=== PATIENT | male | born 1980 | race Caucasian/White ===

== ENCOUNTER 2022-02-24 15:53 | Emergency (ER) | payer OTHER ==
[2022-02-24 16:47] LABS: EOSINOPHIL 13.3 % (0-5); HCT 44.7 % (42.0-52.0); HGB 14.9 g/dl (13.2-18.0); LYMPHOCYTE 27.8 % (15-48); MCH 27.6 pg (25.0-31.0); MCHC 33.3 g/dL (32.0-36.0); MCV 82.9 fL (78.0-100.0); MONOCYTE 12.7 % (0-12); MPV 9.8 fL (6.0-9.5); NEUTROPHIL 44.6 % (41-80); NRBC 0; PLT 337 K/uL (150-400); RBC 5.39 M/uL (4.70-6.00); RDW 12.6 % (11.5-14.0); WBC 10.6 K/uL (4.0-10.5)
[2022-02-24 17:32] LABS: ALBUMIN 3.4 g/dL (3.4-5.0); BILIRUBIN - TOTAL 0.3 mg/dL (0.2-1.0); BUN/CREAT RATIO (CALC) 25.3 RATIO; CREATININE 0.75 mg/dL (0.67-1.17); GLOBULIN (CALCULATION) 3.5 g/dL; POTASSIUM 4.4 mmol/L (3.5-5.1); TOTAL PROTEIN 6.9 g/dL (6.4-8.2)
[2022-02-24] MEDS ORDERED: NAPROXEN500 MG PO (18:27)
[2022-02-24] MEDS ORDERED: ZPAK PO (18:27)
== END 2022-02-24 19:00 | disposition home or self-care (01) ==
LOC: FER 15:53
PROVIDERS: Emergency Medicine
DX: R07.89 Other chest pain (principal); R74.8 Abnormal levels of other serum enzymes; J18.9 Pneumonia, unspecified organism; I10 Essential (primary) hypertension; E66.9 Obesity, unspecified; Z79.899 Other long term (current) drug therapy
CPT/HCPCS: 36415; 71045; 80053; 83880; 84484; 85025; 85379